=== PATIENT | male | born 1985 | race Caucasian/White ===

== ENCOUNTER 2019-07-27 15:08 | Emergency (ER) | payer OTHER, SELFPAY ==
--- NOTE | 2019-07-27 16:22 | EDPHYS ---
Physician Documentation [facility] Name: Dieter Hughes Age: 33 yrs Sex: Male : 1985 Arrival Date: 07/27/2019 Time: 15:11 Bed 23 Private MD: ED Physician Rufina Comer HPI: 07/27 16:20 This 33 yrs old Male presents to ER via Ambulatory with complaints of Chest ma2 Congestion, Sore Throat, Headache. 16:20 The patient presents with sore throat. Onset: The symptoms/episode began/occurred ma2 gradually, 1 day(s) ago. Severity of symptoms: At their worst the symptoms were mild, in the emergency department the symptoms are unchanged. Associated signs and symptoms: Pertinent positives: Pertinent negatives chills, diarrhea, fever, headache. The patient has experienced similar episodes in the past. Historical: - Allergies: 15:16 Bactrim; sv - PMHx: 15:16 Kidney stones; sv - PSHx: 15:16 Lithotripsy; sv - Immunization history:: Flu vaccine is not up to date. - Social history:: Smoking status: Patient/guardian denies using tobacco, Patient/guardian denies using alcohol, street drugs, The patient lives with family. - Ebola Screening: : No symptoms or risks identified at this time. - Family history:: not pertinent. ROS: 16:20 Constitutional: Negative for fever, chills, and weight loss. ma2 16:20 All other systems are negative. Exam: 16:20 Constitutional: This is a well developed, well nourished patient who is awake, alert, ma2 and in no acute distress. Head/Face: Normocephalic, atraumatic. Eyes: Pupils equal round and reactive to light, extra-ocular motions intact. Lids and lashes normal. Conjunctiva and sclera are non-icteric and not injected. Cornea within normal limits. Periorbital areas with no swelling, redness, or edema. ENT: pharyngitis, otherwise Nares patent. No nasal discharge, no septal abnormalities noted. Tympanic membranes are normal and external auditory canals are clear. Oropharynx with no redness, swelling, or masses, exudates, or evidence of obstruction, uvula midline. Mucous membranes moist. Neck: Trachea midline, no thyromegaly or masses palpated, and no cervical lymphadenopathy. Supple, full range of motion without nuchal rigidity, or vertebral point tenderness. No Meningismus. Chest/axilla: Normal chest wall appearance and motion. Nontender with no deformity. No lesions are appreciated. Cardiovascular: Regular rate and rhythm with a normal S1 and S2. No gallops, murmurs, or rubs. Normal PMI, no JVD. No pulse deficits. Respiratory: Lungs have equal breath sounds bilaterally, clear to auscultation and percussion. No rales, rhonchi or wheezes noted. No increased work of breathing, no retractions or nasal flaring. Abdomen/GI: Soft, non-tender, with normal bowel sounds. No distension or tympany. No guarding or rebound. No evidence of tenderness throughout. Vital Signs: 15:16 Weight 81.65 kg; Height 6 ft. 0 in. (182.88 cm); Pain 5/10; sv 15:17 BP 123 / 76; Pulse 78; Resp 16; Temp 98.2(O); Pulse Ox 98% ; lt1 16:30 BP 122 / 78; Pulse 70; Resp 19; Temp 98; Pulse Ox 100% on R/A; mg2 15:16 Body Mass Index 24.41 (81.65 kg, 182.88 cm) sv MDM: 15:13 Patient medically screened. ma2 16:20 Differential diagnosis: Allergic rhinitis, gastroesophageal reflux disease, group A ma2 strep tonsillitis, laryngitis. Data reviewed: vital signs, nurses notes. Counseling: I had a detailed discussion with the patient and/or guardian regarding: the historical points, exam findings, and any diagnostic results supporting the discharge/admit diagnosis, the presence of at least one elevated blood pressure reading (>120/80) during this emergency department visit, the need for outpatient follow up. Response to treatment: the patient's symptoms have markedly improved after treatment. 07/27 15:14 Order name: Strep; Complete Time: 16:06 ma2 07/27 15:14 Order name: Flu; Complete Time: 16:19 ma2 07/27 15:58 Order name: Throat Culture EDMS Administered Medications: 16:48 Drug: TORadol 60 mg Route: IM; Site: left gluteus; mg2 16:49 Follow up: Response: No adverse reaction; Medication administered at discharge. mg2 Disposition: 07/27/19 16:21 Discharged to Home. Impression: Acute pharyngitis. - Condition is Stable. - Discharge Instructions: Pharyngitis. - Prescriptions for Tylenol- Codeine #3 300-30 mg Oral Tablet - take 2 tablet by ORAL route every 6 hours As needed; 30 tablet. Zithromax Z- Rober 250 mg Oral Tablet - take 1 tablet by ORAL route as directed for 5 days Day 1 - take two (2) tablets one time. Day 2, 3, 4 , 5 take one (1) tablet once daily.; 6 tablet. Medrol (Rober) 4 mg Oral Tablets, Dose Pack - take 1 tablet by ORAL route as directed - follow package instructions; 1 packet. - Medication Reconciliation Form, Thank You Letter, Antibiotic Education, Prescription Opioid Use form. - Follow up: Private Physician; When: Tomorrow; Reason: Continuance of care. Signatures: Dispatcher [employer] Edita Benedict RN RN Rufina Comer MD MD ma2 Kenyon Bernard RN RN mg2 Corrections: (The following items were deleted from the chart) 16:50 16:21 07/27/2019 16:21 Discharged to Home. Impression: Acute pharyngitis. Condition is mg2 Stable. Forms are Medication Reconciliation Form, Thank You Letter, Antibiotic Education, Prescription Opioid Use. Follow up: Private Physician; When: Tomorrow; Reason: Continuance of care. ma2
--- NOTE | 2019-07-27 16:22 | ER ---
Nurse's Notes [facility] Name: Dieter Hughes Age: 33 yrs Sex: Male : 1985 Arrival Date: 07/27/2019 Time: 15:11 Bed 23 Private MD: Diagnosis: Acute pharyngitis Presentation: 07/27 15:15 Presenting complaint: Patient states: chest congestion, productive cough with clear sv sputum, sore throat, headache, dionisio ear pain x 2 days. Transition of care: patient was not received from another setting of care. Onset of symptoms was July 25, 2019. Risk Assessment: Do you want to hurt yourself or someone else? Patient reports no desire to harm self or others. Care prior to arrival: None. 15:15 Method Of Arrival: Ambulatory sv 15:15 Acuity: DANA 3 sv 16:00 Initial Sepsis Screen: Does the patient meet any 2 criteria? No. Patient's initial mg2 sepsis screen is negative. Does the patient have a suspected source of infection? No. Patient's initial sepsis screen is negative. Triage Assessment: 16:00 General: Appears in no apparent distress. comfortable, Behavior is calm, cooperative. mg2 Historical: - Allergies: 15:16 Bactrim; sv - PMHx: 15:16 Kidney stones; sv - PSHx: 15:16 Lithotripsy; sv - Immunization history:: Flu vaccine is not up to date. - Social history:: Smoking status: Patient/guardian denies using tobacco, Patient/guardian denies using alcohol, street drugs, The patient lives with family. - Ebola Screening: : No symptoms or risks identified at this time. - Family history:: not pertinent. Screenin:00 Abuse screen: Denies threats or abuse. Denies injuries from another. Nutritional mg2 screening: No deficits noted. Tuberculosis screening: No symptoms or risk factors identified. Fall Risk None identified. Assessment: 16:00 General: Appears in no apparent distress. comfortable. mg2 16:00 Pain: Complains of pain in throat and head. Neuro: Level of Consciousness is awake, mg2 alert, obeys commands, Oriented to person, place, time, situation. Cardiovascular: Capillary refill < 3 seconds Patient's skin is warm and dry. Respiratory: Airway is patent Respiratory effort is even, unlabored, Respiratory pattern is regular, symmetrical. Respiratory: Breath sounds are clear. Respiratory: Reports cough that is. GI: No signs and/or symptoms were reported involving the gastrointestinal system. : No signs and/or symptoms were reported regarding the genitourinary system. EENT: Throat is pink. Derm: Skin is intact, is healthy with good turgor, Skin is pink, warm \T\ dry. normal. Musculoskeletal: Circulation, motion, and sensation intact. Capillary refill < 3 seconds. Vital Signs: 15:16 Weight 81.65 kg; Height 6 ft. 0 in. (182.88 cm); Pain 5/10; sv 15:17 BP 123 / 76; Pulse 78; Resp 16; Temp 98.2(O); Pulse Ox 98% ; lt1 16:30 BP 122 / 78; Pulse 70; Resp 19; Temp 98; Pulse Ox 100% on R/A; mg2 15:16 Body Mass Index 24.41 (81.65 kg, 182.88 cm) sv ED Course: 15:11 Patient arrived in ED. as 15:13 Rufina Comer MD is Attending Physician. ma2 15:15 Triage completed. sv 15:16 Arm band placed on. sv 16:00 Patient has correct armband on for positive identification. mg2 16:00 No provider procedures requiring assistance completed. mg2 16:00 Patient did not have IV access during this emergency room visit. mg2 16:30 Kenyon Bernard, RN is Primary Nurse. mg2 Administered Medications: 16:48 Drug: TORadol 60 mg Route: IM; Site: left gluteus; mg2 16:49 Follow up: Response: No adverse reaction; Medication administered at discharge. mg2 Outcome: 16:21 Discharge ordered by . ma2 16:49 Discharged to home ambulatory. mg2 16:49 Condition: stable 16:49 Discharge instructions given to patient, Instructed on discharge instructions, follow up and referral plans. medication usage, Demonstrated understanding of instructions, follow-up care, medications, Prescriptions given X 3. 16:50 Patient left the ED. mg2 Signatures: Edita Nguyễn, RN Heavenly Cook as Rufina Comer MD MD ma2 Gardose, Michele, RN RN mg2 Tran, Leah lt1
[2019-07-27] MEDS ORDERED: KETOROLAC 30 MG/ML INJ ONE (16:35)
[2019-07-27 17:36] VITALS: BP 123/76; TEMP 98.2; O2SAT 98
== END 2019-07-27 16:50 | disposition home or self-care (01) ==
LOC: ER 15:08
DX: J02.9 Acute pharyngitis, unspecified (principal); Z87.442 Personal history of urinary calculi; Z88.1 Allergy status to other antibiotic agents
CPT/HCPCS: 87070; 87081; 87804; 96372; 99283

== ENCOUNTER 2019-08-17 00:45 | Emergency (ER) | payer SELFPAY ==
--- NOTE | 2019-08-17 02:12 | ER ---
Nurse's Notes [facility] Name: Dieter Hughes Age: 33 yrs Sex: Male : 1985 Arrival Date: 08/17/2019 Time: 00:47 Bed 20 Private MD: Diagnosis: Acute pharyngitis Presentation: 08/17 00:52 Presenting complaint: Patient states: he was seen here a few weeks back was diagnosed wh with Pharyngitis, now C/O body aches, flu like symptoms, sore throat and chest congestion. Pt states he think he has fever. Transition of care: patient was not received from another setting of care. Onset of symptoms was August 17, 2019. Risk Assessment: Do you want to hurt yourself or someone else? Patient reports no desire to harm self or others. Initial Sepsis Screen: Does the patient meet any 2 criteria? No. Patient's initial sepsis screen is negative. Does the patient have a suspected source of infection? Yes: Productive cough/pneumonia. Care prior to arrival: None. 00:52 Method Of Arrival: Ambulatory 00:52 Acuity: DANA 4 Historical: - Allergies: 00:57 Bactrim; - Home Meds: 00:57 None [Active]; - PMHx: 00:57 Kidney stones; - PSHx: 00:57 ESWL; - Immunization history:: Adult Immunizations not up to date, Flu vaccine is not up to date. - Social history:: Smoking status: Patient/guardian denies using tobacco, Patient/guardian denies using alcohol, street drugs, The patient lives with family. - Ebola Screening: : Patient negative for fever greater than or equal to 101.5 degrees Fahrenheit, and additional compatible Ebola Virus Disease symptoms Patient denies exposure to infectious person. - Family history:: not pertinent. Screenin:56 Abuse screen: Denies threats or abuse. Denies injuries from another. Nutritional screening: No deficits noted. Tuberculosis screening: No symptoms or risk factors identified. Fall Risk None identified. Assessment: 01:14 General: Appears in no apparent distress. Behavior is calm, cooperative, appropriate for age. Pain: Complains of pain in Sore throat. Neuro: Level of Consciousness is awake, alert, obeys commands, Oriented to person, place, time, situation, Appropriate for age. Cardiovascular: Heart tones S1 S2. Respiratory: Reports cough that is productive, Airway is patent Respiratory effort is even, unlabored, Respiratory pattern is regular, symmetrical, Breath sounds are clear bilaterally. GI: Abdomen is flat, non-distended. : No signs and/or symptoms were reported regarding the genitourinary system. EENT: Throat is pink. Derm: Skin is intact, is healthy with good turgor, Skin is pink, warm \T\ dry. normal. Musculoskeletal: Circulation, motion, and sensation intact. 02:51 Reassessment: Patient appears in no apparent distress at this time. Patient and/or bb3 family updated on plan of care and expected duration. Pain level reassessed. Patient is alert, oriented x 3, equal unlabored respirations, skin warm/dry/pink. Vital Signs: 00:55 BP 99 / 84; Pulse 88; Resp 18; Temp 97.7; Pulse Ox 98% ; Weight 83.91 kg; Height 6 ft. 0 in. (182.88 cm); 02:30 BP 106 / 58; Pulse 75; Resp 18; Pulse Ox 98% on R/A; bb3 00:55 Body Mass Index 25.09 (83.91 kg, 182.88 cm) ED Course: 00:47 Patient arrived in ED. jg7 00:50 Rufina Comer MD is Attending Physician. ma2 00:52 Ayr Soto is Primary Nurse. 00:55 Triage completed. 00:57 Patient has correct armband on for positive identification. Bed in low position. Call light in reach. Side rails up X 1. Pulse ox on. NIBP on. 00:58 Arm band placed on right wrist. 02:55 No provider procedures requiring assistance completed. Patient did not have IV access bb3 during this emergency room visit. Administered Medications: 02:30 Drug: TORadol 60 mg Route: IM; Site: right gluteus; bb3 02:50 Follow up: Response: No adverse reaction; Pain is decreased bb3 Outcome: 02:12 Discharge ordered by . ma2 02:55 Discharged to home ambulatory. bb3 02:55 Condition: stable 02:55 Discharge instructions given to patient, Instructed on discharge instructions, follow up and referral plans. no drinking with medication, no driving heavy equipment, medication usage, poc pharyngitis Demonstrated understanding of instructions, follow-up care, medications, poc Prescriptions given X 2. 02:56 Patient left the ED. bb3 Signatures: Ary Soto Mohammad, MD MD ma2 Clarisa Ferrer bb3 Jeanette Wadsworth7
--- NOTE | 2019-08-17 02:12 | EDPHYS ---
Physician Documentation [facility] Name: Dieter Hughes Age: 33 yrs Sex: Male : 1985 Arrival Date: 08/17/2019 Time: 00:47 Bed 20 Private MD: ED Physician Rufina Comer HPI: 08/17 02:10 This 33 yrs old Male presents to ER via Ambulatory with complaints of Flu ma2 Symptoms. 02:10 The patient or guardian reports cough, that is constant. Onset: The symptoms/episode ma2 began/occurred gradually, 2 day(s) ago. Severity of symptoms: At their worst the symptoms were mild, in the emergency department the symptoms are unchanged. Associated signs and symptoms: Pertinent negatives: nausea, vomiting. The patient has experienced similar episodes in the past. Historical: - Allergies: 00:57 Bactrim; wh - Home Meds: 00:57 None [Active]; wh - PMHx: 00:57 Kidney stones; - PSHx: 00:57 ESWL; - Immunization history:: Adult Immunizations not up to date, Flu vaccine is not up to date. - Social history:: Smoking status: Patient/guardian denies using tobacco, Patient/guardian denies using alcohol, street drugs, The patient lives with family. - Ebola Screening: : Patient negative for fever greater than or equal to 101.5 degrees Fahrenheit, and additional compatible Ebola Virus Disease symptoms Patient denies exposure to infectious person. - Family history:: not pertinent. ROS: 02:10 Constitutional: Negative for fever, chills, and weight loss. ma2 02:10 All other systems are negative. Exam: 02:10 Constitutional: This is a well developed, well nourished patient who is awake, alert, ma2 and in no acute distress. 02:10 Chest/axilla: Normal chest wall appearance and motion. Nontender with no deformity. No lesions are appreciated. Cardiovascular: Regular rate and rhythm with a normal S1 and S2. No gallops, murmurs, or rubs. Normal PMI, no JVD. No pulse deficits. Respiratory: Lungs have equal breath sounds bilaterally, clear to auscultation and percussion. No rales, rhonchi or wheezes noted. No increased work of breathing, no retractions or nasal flaring. Abdomen/GI: Soft, non-tender, with normal bowel sounds. No distension or tympany. No guarding or rebound. No evidence of tenderness throughout. 02:10 ENT: Posterior pharynx: Tonsils: bilaterally enlarged. Vital Signs: 00:55 BP 99 / 84; Pulse 88; Resp 18; Temp 97.7; Pulse Ox 98% ; Weight 83.91 kg; Height 6 ft. wh 0 in. (182.88 cm); 02:30 BP 106 / 58; Pulse 75; Resp 18; Pulse Ox 98% on R/A; bb3 00:55 Body Mass Index 25.09 (83.91 kg, 182.88 cm) MDM: 00:50 Patient medically screened. ma2 02:10 Differential Diagnosis: Bronchitis Influenza Upper Respiratory Infection Sinusitis. ma2 Data reviewed: vital signs, nurses notes. Counseling: I had a detailed discussion with the patient and/or guardian regarding: the historical points, exam findings, and any diagnostic results supporting the discharge/admit diagnosis, the presence of at least one elevated blood pressure reading (>120/80) during this emergency department visit, lab results, the need for outpatient follow up. Medical screen evaluation completed. [facility] emergency medical condition absent. 08/17 00:50 Order name: Flu; Complete Time: 02:10 ky2 08/17 00:50 Order name: Strep; Complete Time: 02:10 ky2 08/17 02:00 Order name: Throat Culture EDTX Administered Medications: 02:30 Drug: TORadol 60 mg Route: IM; Site: right gluteus; 3 02:50 Follow up: Response: No adverse reaction; Pain is decreased bb3 Disposition: 08/17/19 02:12 Discharged to Home. Impression: Acute pharyngitis. - Condition is Stable. - Discharge Instructions: Pharyngitis. - Prescriptions for Augmentin 875- 125 mg Oral Tablet - take 1 tablet by ORAL route every 12 hours for 10 days; 20 tablet. Tramadol 50 mg Oral Tablet - take 1 tablet by ORAL route every 8 hours as needed; 12 tablet. - Medication Reconciliation Form, Thank You Letter, Antibiotic Education, Prescription Opioid Use form. - Follow up: Private Physician; When: Tomorrow; Reason: Recheck today's complaints, Continuance of care. Signatures: Dispatcher [employer] EDTX Steve Sotosy wh Alzahri, Mohammad, MD MD ma2 Clarisa Ferrer bb3 Corrections: (The following items were deleted from the chart) 02:56 02:12 08/17/2019 02:12 Discharged to Home. Impression: Acute pharyngitis. Condition is bb3 Stable. Prescriptions for Augmentin 875-125 mg Oral Tablet - take 1 tablet by ORAL route every 12 hours for 10 days; 20 tablet, Tramadol 50 mg Oral Tablet - take 1 tablet by ORAL route every 8 hours as needed; 12 tablet. and Forms are Medication Reconciliation Form, Thank You Letter, Antibiotic Education, Prescription Opioid Use. Follow up: Private Physician; When: Tomorrow; Reason: Recheck today's complaints, Continuance of care. vijay
[2019-08-17] MEDS ORDERED: KETOROLAC 30 MG/ML INJ ONE (02:24)
[2019-08-17 03:18] VITALS: TEMP 97.7; O2SAT 98
[2019-08-17 03:21] VITALS: BP 106/58
== END 2019-08-17 02:56 | disposition home or self-care (01) ==
LOC: ER 00:45
DX: J02.9 Acute pharyngitis, unspecified (principal); Z88.1 Allergy status to other antibiotic agents
CPT/HCPCS: 87070; 87081; 87804; 96372; 99283

== ENCOUNTER 2019-10-23 00:39 | Emergency (ER) | payer SELFPAY ==
[2019-10-23 01:16] LABS: Absolute Lymphocytes (CBC) 2.3 K/uL (0.7-4.9); Basophils % 0.9 % (0-1.3); Hematocrit 50.3 % (39.6-49.0); Lymphocytes % 16.8 % (15.3-44.8); MPV 7.8 fL (7.6-11.3); RBC Red Blood Cell Count 5.93 M/uL (4.33-5.43)
[2019-10-23] MEDS ORDERED: MORPHINE 4 MG/ML SYR ONE (01:17)
[2019-10-23] MEDS ORDERED: NA CHLORIDE 0.9% 1,000 ML ONE (01:17)
[2019-10-23] MEDS ORDERED: ONDANSETRON 4 MG/2 ML VIAL ONE (01:17)
[2019-10-23 01:30] LABS: Albumin 4.3 g/dL (3.4-5.0); Bilirubin Direct 0.1 mg/dL (0-0.2); Bilirubin Total 0.6 mg/dL (0.2-1.0); Potassium 3.8 mmol/L (3.5-5.1); Protein, Total 8.2 g/dL (6.4-8.2)
[2019-10-23 01:49] LABS: Urine Bacteria >50 /HPF (NONE SEEN); Urine RBC NONE SEEN /HPF (NONE SEEN)
[2019-10-23 01:50] LABS: Urine Amorphous Sediment 3+ /HPF (NONE SEEN); Urine Mucus 2+ /HPF (NONE SEEN)
[2019-10-23] MEDS ORDERED: CEFTRIAXONE/SWI 1gm 1 GM/10 ML SYR ONE (02:24)
[2019-10-23] MEDS ORDERED: KETOROLAC 30 MG/ML INJ ONE (02:31)
--- NOTE | 2019-10-23 02:36 | ER ---
Nurse's Notes [facility] Name: Dieter Hughes Age: 34 yrs Sex: Male : 1985 Arrival Date: 10/23/2019 Time: 00:41 Bed 7 Private MD: Diagnosis: Flank Pain;Urinary tract infection, site not specified Presentation: 10/22 00:44 Chief complaint: Patient states: Right flank pain, with nausea, reports hx of kidney sg stone, feels like this might also be a kidney stone. Coronavirus screen: The patient has NOT traveled to a country currently being monitored by the [facility] within the last 14 days. The patient has NOT had contact with any known and/or suspected case of coronavirus. Ebola Screen: Patient negative for fever greater than or equal to 101.5 degrees Fahrenheit, and additional compatible Ebola Virus Disease symptoms Patient denies exposure to infectious person. Patient denies travel to an Ebola-affected area in the 21 days before illness onset. No symptoms or risks identified at this time. Initial Sepsis Screen: Does the patient have a suspected source of infection? No. Patient's initial sepsis screen is negative. Risk Assessment: Do you want to hurt yourself or someone else? Patient reports no desire to harm self or others. 00:44 Method Of Arrival: Ambulatory sg 00:44 Acuity: DANA 3 sg 02:09 Initial Sepsis Screen: Does the patient meet any 2 criteria? No. Patient's initial ea sepsis screen is negative. 02:47 Onset of symptoms was October 23, 2019. jd3 Historical: - Allergies: 00:45 Bactrim; sg - PMHx: 00:45 Kidney stones; sg - PSHx: 00:46 Extracorporal Shockwave Therapy; sg - Immunization history:: Adult Immunizations not up to date. - Social history:: Smoking status: Patient reports the use of cigarette tobacco products. Screenin:53 Abuse screen: Denies threats or abuse. Nutritional screening: No deficits noted. Tuberculosis screening: No symptoms or risk factors identified. Fall Risk None identified. Assessment: 01:05 General: Appears uncomfortable, Behavior is cooperative, appropriate for age. Pain: Complains of pain in anterior aspect of left lateral abdomen, posterior aspect of left lateral abdomen and right lower quadrant Pain does not radiate. Pain currently is 6 out of 10 on a pain scale. Quality of pain is described as aching, Pain began 1 day ago. Is continuous. Neuro: Level of Consciousness is awake, alert, obeys commands, Oriented to person, place, time, situation. Cardiovascular: Heart tones S1 S2 present Capillary refill < 3 seconds Patient's skin is warm and dry. Respiratory: Airway is patent Respiratory effort is even, unlabored, Respiratory pattern is regular, symmetrical, Breath sounds are clear bilaterally. GI: Bowel sounds present X 4 quads. Abd is soft and non tender. 01:53 Reassessment: Patient appears in no apparent distress at this time. Patient and/or ah family updated on plan of care and expected duration. Pain level reassessed. Patient is alert, oriented x 3, equal unlabored respirations, skin warm/dry/pink. awaiting lab results Patient states feeling better. Patient states symptoms have improved. 02:46 Reassessment: Patient appears in no apparent distress at this time. Patient and/or d3 family updated on plan of care and expected duration. Pain level reassessed. Patient is alert, oriented x 3, equal unlabored respirations, skin warm/dry/pink. reported understanding of discharge instructions. even and steady gait upon discharge. Patient states feeling better. Vital Signs: 02:07 BP 111 / 71; Pulse 89; Resp 18; Temp 97.7; Pulse Ox 98% ; ea 02:49 BP 128 / 83; Pulse 86; Resp 16 S; Pulse Ox 99% on R/A; jd3 ED Course: 00:41 Patient arrived in ED. cl3 00:42 Benedict Monroy PA is PHCP. [facility] 00:42 Juan Jose Varela MD is Attending Physician. [facility] 00:45 Triage completed. sg 00:46 Arm band placed on. sg 00:58 Inserted saline lock: 20 gauge in left antecubital area, using aseptic technique. 01:01 Diandra Obrien, RN is Primary Nurse. 01:[address] back from [address]. 01:46 CT Stone Protocol In Process Unspecified. EDMS 01:54 Patient has correct armband on for positive identification. Call light in reach. Side rails up X 1. 02:47 No provider procedures requiring assistance completed. IV discontinued, intact, jd3 bleeding controlled, No redness/swelling at site. Pressure dressing applied. Administered Medications: 01:20 Drug: Zofran (Ondansetron) 4 mg Route: IVP; Site: left antecubital; ea 02:21 Follow up: Response: No adverse reaction; Nausea is decreased 01:20 Drug: NS 0.9% 1000 ml Route: IV; Rate: 1 bolus; Site: left antecubital; ea 02:20 Follow up: Response: No adverse reaction; IV Status: Completed infusion; IV Intake: jd3 1000ml 01:25 Drug: morphine 4 mg Route: IVP; Site: left antecubital; ea 02:21 Follow up: Response: No adverse reaction; Pain is decreased 02:20 Drug: Rocephin - (cefTRIAXone) 1 grams Route: IVPB; Infused Over: 30 mins; Site: left antecubital; 02:48 Follow up: Response: No adverse reaction; IV Status: Completed infusion jd3 02:30 Drug: Ketorolac 30 mg Route: IVP; Site: left antecubital; ea 02:48 Follow up: Response: No adverse reaction jd3 Intake: 02:20 IV: 1000ml; Total: 1000ml. jd3 Outcome: 02:35 Discharge ordered by MD. hart 02:47 Discharged to home ambulatory, with family. jd3 02:47 Condition: stable 02:47 Discharge instructions given to patient, Instructed on discharge instructions, follow up and referral plans. medication usage, Demonstrated understanding of instructions, follow-up care, medications, Prescriptions given X 3. 02:49 Patient left the ED. jd3 Signatures: Dispatcher [employer] EDRamakrishna Royal RN RN sg Mickail, Joel, PA PA jmm Antunez, Elena, RN RN ea Davies, Jonathon, RN RN jd3 Lewis, Charde cl3 Diandra Obrien RN RN ah
--- NOTE | 2019-10-23 02:36 | EDPHYS ---
Physician Documentation [facility] Name: Dieter Hughes Age: 34 yrs Sex: Male : 1985 Arrival Date: 10/23/2019 Time: 00:41 Bed 7 Private MD: ED Physician Juan Jose Varela HPI: 10/22 01:26 This 34 yrs old Male presents to ER via Ambulatory with complaints of jmm Possible Kidney Stone. 01:26 The patient complains of pain in the right flank. Onset: The symptoms/episode jmm began/occurred gradually, 1 day(s) ago. Modifying factors: The symptoms are alleviated by nothing. the symptoms are aggravated by nothing. Associated signs and symptoms: Pertinent positives: nausea. This is a 34 year old male with a history of kidney stones that presents to the ED with complaints of right flank pain beginning yesterday. Patient has had similar episodes with previous kidney stones. . Historical: - Allergies: 00:45 Bactrim; sg - PMHx: 00:45 Kidney stones; sg - PSHx: 00:46 Extracorporal Shockwave Therapy; sg - Immunization history:: Adult Immunizations not up to date. - Social history:: Smoking status: Patient reports the use of cigarette tobacco products. ROS: 01:26 Constitutional: Negative for fever, chills, and weight loss, Cardiovascular: Negative jmm for chest pain, palpitations, and edema, Respiratory: Negative for shortness of breath, cough, wheezing, and pleuritic chest pain. 01:26 Abdomen/GI: Positive for abdominal pain, nausea. 01:26 Back: Positive for flank pain, on the right. 01:26 All other systems are negative. Exam: 01:26 Constitutional: This is a well developed, well nourished patient who is awake, alert, jmm and in no acute distress. Head/Face: atraumatic. Eyes: EOMI, no conjunctival erythema appreciated ENT: Moist Mucus Membranes Neck: Trachea midline, Supple Chest/axilla: Normal chest wall appearance and motion. Cardiovascular: Regular rate and rhythm. No edema appreciated Respiratory: Normal respirations, no respiratory distress appreciated Back: Normal ROM 01:26 Abdomen/GI: Inspection: abdomen appears normal, Bowel sounds: normal, Palpation: soft, mild abdominal tenderness, in the right lower quadrant. 01:26 Back: ROM is normal. 01:26 Musculoskeletal/extremity: ROM: intact in all extremities. 01:26 Skin: Appearance: Color: normal in color. 01:26 Neuro: Orientation: is normal, Mentation: is normal, Memory: is normal. 01:26 Psych: Behavior/mood is pleasant, cooperative. Vital Signs: 02:07 BP 111 / 71; Pulse 89; Resp 18; Temp 97.7; Pulse Ox 98% ; ea 02:49 BP 128 / 83; Pulse 86; Resp 16 S; Pulse Ox 99% on R/A; jd3 MDM: 00:48 Patient medically screened. [facility] 02:33 Data reviewed: vital signs, nurses notes. Counseling: I had a detailed discussion with tanner the patient and/or guardian regarding: the historical points, exam findings, and any diagnostic results supporting the discharge/admit diagnosis, lab results, radiology results, the need for outpatient follow up, to return to the emergency department if symptoms worsen or persist or if there are any questions or concerns that arise at home. ED course: Patient is alert and non toxic in appearance. Decreased pain in the ED. Patient is advised to follow up with pcp and otherwise given strict return precautions. . 10/22 00:43 Order name: Basic Metabolic Panel; Complete Time: 01:50 [facility] 10/22 00:43 Order name: CBC with Diff; Complete Time: :50 [facility] 10/22 00:43 Order name: Creatinine for Radiology; Complete Time: :50 [facility] 10/22 00:43 Order name: Hepatic Function; Complete Time: 01:50 [facility] 10/22 00:43 Order name: Lipase; Complete Time: :50 [facility] 10/22 01:17 Order name: Urine Microscopic Only; Complete Time: 01:54 [facility] 10/22 00:43 Order name: IV Saline Lock; Complete Time: 01:02 [facility] 10/22 01:14 Order name: CT Stone Protocol [facility] 10/22 01:52 Order name: Urine Culture [facility] 10/22 00:43 Order name: Labs collected and sent; Complete Time: 01:02 [facility] 10/22 00:43 Order name: Urine Dipstick-Ancillary (obtain specimen); Complete Time: 00:48 [facility] 10/22 02:06 Order name: Vital Signs; Complete Time: 02:19 [facility] Administered Medications: 01:20 Drug: Zofran (Ondansetron) 4 mg Route: IVP; Site: left antecubital; ea 02:21 Follow up: Response: No adverse reaction; Nausea is decreased 01:20 Drug: NS 0.9% 1000 ml Route: IV; Rate: 1 bolus; Site: left antecubital; ea 02:20 Follow up: Response: No adverse reaction; IV Status: Completed infusion; IV Intake: jd3 1000ml 01:25 Drug: morphine 4 mg Route: IVP; Site: left antecubital; ea 02:21 Follow up: Response: No adverse reaction; Pain is decreased 02:20 Drug: Rocephin - (cefTRIAXone) 1 grams Route: IVPB; Infused Over: 30 mins; Site: left ah antecubital; 02:48 Follow up: Response: No adverse reaction; IV Status: Completed infusion jd3 02:30 Drug: Ketorolac 30 mg Route: IVP; Site: left antecubital; ea 02:48 Follow up: Response: No adverse reaction jd3 Disposition: 12:04 Co-signature as Attending Physician, Juan Jose Varela MD I agree with the assessment and joy plan of care. Disposition: 10/23/19 02:35 Discharged to Home. Impression: Flank Pain, Urinary tract infection, site not specified. - Condition is Stable. - Discharge Instructions: Flank Pain, Adult, Urinary Tract Infection, Adult. - Prescriptions for Cephalexin 500 mg Oral Capsule - take 1 capsule by ORAL route every 12 hours for 10 days; 20 capsule. Ultracet 37.5- 325 mg Oral Tablet - take 1 tablet by ORAL route every 6 hours - for up to 5 days; do not exceed 8 tablets per day.; 12 tablet. Zofran 4 mg Oral Tablet - take 1 tablet by ORAL route every 12 hours As needed; 20 tablet. - Medication Reconciliation Form, Thank You Letter, Antibiotic Education, Prescription Opioid Use form. - Follow up: Private Physician; When: 2 - 3 days; Reason: Recheck today's complaints, Continuance of care, Re-evaluation by your physician. Signatures: Dispatcher [employer] Ramakrishna Alvarado RN RN sg Anderson, Corey, MD MD cha Mickail, Joel, PA PA jmm Antunez, Elena, RN RN ea Davies, Jonathon, RN RN jd3 Harris, Amy, RN RN Corrections: (The following items were deleted from the chart) 02:49 02:35 10/23/2019 02:35 Discharged to Home. Impression: Flank Pain; Urinary tract jd3 infection, site not specified. Condition is Stable. Forms are Medication Reconciliation Form, Thank You Letter, Antibiotic Education, Prescription Opioid Use. Follow up: Private Physician; When: 2 - 3 days; Reason: Recheck today's complaints, Continuance of care, Re-evaluation by your physician. tanner
[2019-10-23 02:56] VITALS: TEMP 97.7
[2019-10-23 02:57] VITALS: BP 128/83; O2SAT 99
--- NOTE | 2019-10-23 11:50 | RAD REPORT ---
EXAM DESCRIPTION: CT Stone Protocol CLINICAL HISTORY: 34 years Male FLANK PAIN TECHNIQUE: Contiguous axial images obtained through the abdomen and pelvis without IV contrast. Clayton nal and sagittal reformatted images provided. This CT exam was performed according to our departmental dose-optimization program, which includes on e or more of the following dose reduction techniques: automated exposure control, adjustment of the m A and/or kV according to patient size, and/or use of iterative reconstruction technique. COMPARISON: No prior exams provided for comparison. FINDINGS: There are nonobstructing intrarenal calculi bilaterally measuring up to 6 mm on the left. There is no hydronephrosis or perinephric stranding on either side. No ureteral or bladder calculi. The lung bases, unenhanced liver, biliary tree, gallbladder, pancreas, spleen, adrenal glands, urinar y bladder, and osseous structures are normal. The appendix is normal. There is no bowel inflammation, obstruction, free intraperitoneal air, or asc ites. IMPRESSION: Bilateral nephrolithiasis without urinary obstruction. No acute findings in the abdomen or pelvis. Electronically signed by: Gia Mauricio MD 10/23/2019 1:59 AM CDT Due to temporary technical issues with the PACS/Fluency reporting system, reports are being signed by the in house radiologist as a courtesy to ensure prompt reporting. The interpreting radiologist is f ully responsible for the content of the report.
== END 2019-10-23 02:49 | disposition home or self-care (01) ==
LOC: ER 00:39
DX: N39.0 Urinary tract infection, site not specified (principal); Z88.1 Allergy status to other antibiotic agents; Z72.0 Tobacco use; Z87.442 Personal history of urinary calculi
CPT/HCPCS: 36415; 74176; 76377; 80048; 80076; 81015; 83690; 85025; 87086; 87088; 96361; 96365; 96375; 99284; J0696; J2405; J7030